=== PATIENT | male | born 2000 | race Caucasian/White ===

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

== ENCOUNTER 2018-09-21 08:36 | Emergency (ER) | payer OTHER ==
[2018-09-21] MEDS: ONDANSETRON (ODT) 4 MG TAB ODT (12:01)
== END 2018-09-21 13:22 | disposition home or self-care (01) ==
LOC: FTE 08:36
DX: R05 Cough (principal); R50.9 Fever, unspecified; R09.89 Other specified symptoms and signs involving the circulatory and respiratory systems; R11.0 Nausea; R53.81 Other malaise
CPT/HCPCS: 99283; Z7502

== ENCOUNTER 2019-02-13 12:47 | Emergency (ER) | payer OTHER | END 2019-02-13 14:50 | disposition home or self-care (01) | LOC: E/R 14:50 | DX: M54.5 Low back pain (principal); M79.604 Pain in right leg; M79.605 Pain in left leg | CPT/HCPCS: 76775; 99284-25 ==

== ENCOUNTER 2019-04-06 16:17 | Emergency (ER) | payer OTHER | END 2019-04-06 18:09 | disposition home or self-care (01) | LOC: FTE 16:17 | DX: J02.9 Acute pharyngitis, unspecified (principal); F17.210 Nicotine dependence, cigarettes, uncomplicated | CPT/HCPCS: 99283; Z7502 ==